=== PATIENT | male | born 1985 | race Caucasian/White ===

== ENCOUNTER 2020-01-28 17:47 | Outpatient (REF) | payer OTHER, SELFPAY | END 2020-01-28 17:48 | disposition home or self-care (01) | LOC: HO.LAB 17:47 | PROVIDERS: Visit Provider Internal Medicine | DX: Z20.828 Contact with and (suspected) exposure to other viral communicable diseases (principal) | CPT/HCPCS: C9803; U0003 ==

== ENCOUNTER 2020-02-05 13:30 | Outpatient (REF) | payer OTHER, SELFPAY | END 2020-02-05 13:31 | disposition home or self-care (01) | LOC: HO.LAB 13:30 | PROVIDERS: Visit Provider Internal Medicine | DX: Z20.828 Contact with and (suspected) exposure to other viral communicable diseases (principal) | CPT/HCPCS: C9803; U0003 ==

== ENCOUNTER 2020-02-14 11:11 | Outpatient (REF) | payer OTHER, SELFPAY | END 2020-02-14 11:12 | disposition home or self-care (01) | LOC: HO.LAB 11:11 | PROVIDERS: Visit Provider Internal Medicine | DX: Z20.828 Contact with and (suspected) exposure to other viral communicable diseases (principal) | CPT/HCPCS: 36415; C9803; U0003 ==